=== PATIENT | female | born 1940 | race Caucasian/White ===

== ENCOUNTER 2022-11-01 12:08 | Emergency (ER) | payer MEDICARE, SELFPAY ==
[2022-11-01] VITALS (11 sets, daily range): BP systolic 145–180; BP diastolic 60–89; PULSE 73–85; RESP 16–23; TEMP 36.4; O2SAT 92; BMI 20.2
--- NOTE | 2022-11-01 12:35 | ECG_ITS ---
The 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
[2022-11-01 12:53] LABS: Basophils Percent Auto 0.6 % (0.2-2.0); Eosinophils Absolute Auto 0.3 10^3/uL (0.0-0.7); Eosinophils Percent Auto 5.1 % (0.9-7.0); Hematocrit 36.7 % (36.0-48.0); Hemoglobin 11.2 g/dL (12.0-16.0); Immature Granulocytes Abs Auto 0.02 10^3/uL (0.00-0.03); Immature Granulocytes Pct Auto 0.3 % (0.0-0.5); Lymphocytes Absolute Auto 2.3 10^3/uL (1.2-3.8); Lymphocytes Percent Auto 36.7 % (20.5-60.0); Mean Corpuscular HGB Conc 30.5 g/dL (29.9-35.2); Mean Corpuscular Hemoglobin 27.9 pg (26.7-34.0); Mean Corpuscular Volume 91.5 fL (81.0-99.0); Mean Platelet Volume 9.5 fL (9.5-13.5); Monocytes Absolute Auto 0.4 10^3/uL (0.3-0.8); Monocytes Percent Auto 7.1 % (1.7-12.0); Neutrophils Absolute Auto 3.1 10^3/uL (1.4-6.5); Neutrophils Percent Auto 50.2 % (43.0-75.0); Platelet Count 240 10^3/uL (150-450); Red Blood Count 4.01 10^6/uL (4.20-5.40); Red Cell Distribution Width 14.1 % (11.0-15.0); White Blood Count 6.2 10^3/uL (4.0-11.0)
--- NOTE | 2022-11-01 13:07 | US_ITS ---
[place] [id number] Patient Name: NAUN PERDOMO MRN: [id number] date: 1940 Sex: F Assigned Patient Location: ER Current Patient Location: ER Accession/Order Number: [id number] Exam Date: 11/01/2022 13:30 Report Date: 11/01/2022 14:33 At the request of: YUNIER VALENCIA Procedure: US venous doppler LE LT EXAMINATION: US venous doppler LE LT HISTORY: LLE swelling COMPARISON: No relevant comparison available. TECHNIQUE: Grayscale, color and Doppler ultrasound FINDINGS: Region: Left leg Thrombus: None Flow: Normal Augmentation: Normal Compressibility: Normal IMPRESSION: No deep or superficial vein thrombus identified in the left leg *Exam performed in accordance with [facility] practice guidelines- Peripheral venous ultrasound, August 12, 2009. Electronically authenticated by: MAE IZQUIERDO Date: 11/01/2022 14:33
--- NOTE | 2022-11-01 13:09 | ED.EXTPRO1 ---
Documented by User: Diane Mensah 11/01/22 16:43 HPI - Extremity Problem General Chief complaint: Extremity Problem, Nontraumatic Stated complaint: LOWER EXTREMITY SWELLING LEFT LEG Time Seen by Provider: 11/01/22 12:58 Source: patient Mode of arrival: walk-in Limitations: no limitations History of Present Illness HPI Narrative: 81 year old female presents to the ED for LLE swelling. Onset was 4-5 days ago. Denies fever, chills, injury, weakness, N/T. She has chronic SOB that is unchanged. MD Complaint: Reports extremity pain and extremity swelling; Denies cold extremity Location: Reports left Related Data Allergies Allergy/AdvReac Type Severity Reaction Status Date / Time Penicillins Allergy Unknown Verified 11/01/22 12:18 Review of Systems ROS Constitutional Denies: fever, chills or fatigue Cardiovascular Reports: swelling of feet/ankles and shortness of breath with exertion; Denies: chest pain Respiratory Reports: shortness of breath; Denies: cough Gastrointestinal Denies: abdominal pain, nausea, vomiting or diarrhea Musculoskeletal Reports: extremity swelling; Denies: back pain Neurological Denies: numbness in extremities or weakness in extremities Exam Constitutional Vital Signs - 24 hr 11/01/22 12:18 11/01/22 12:18 11/01/22 12:31 Temperature 97.5 F L Pulse Rate 74 77 Pulse Rate [Monitor] 82 Respiratory Rate 16 22 23 Blood Pressure 173/61 H 159/81 H Blood Pressure [Right Arm] 173/61 H Pulse Oximetry 92 L Oxygen Delivery Method Room Air 11/01/22 12:45 11/01/22 13:00 11/01/22 13:15 Temperature Pulse Rate 75 73 77 Pulse Rate [Monitor] Respiratory Rate 22 18 18 Blood Pressure 163/68 H 151/60 H 153/79 H Blood Pressure [Right Arm] Pulse Oximetry Oxygen Delivery Method 11/01/22 13:30 11/01/22 13:45 11/01/22 13:45 Temperature Pulse Rate 85 81 77 Pulse Rate [Monitor] Respiratory Rate Blood Pressure 162/64 H 180/89 H 180/89 H Blood Pressure [Right Arm] Pulse Oximetry Oxygen Delivery Method 11/01/22 14:00 11/01/22 14:15 11/01/22 14:30 Temperature Pulse Rate 78 75 77 Pulse Rate [Monitor] Respiratory Rate Blood Pressure 157/64 H 145/69 H 158/81 H Blood Pressure [Right Arm] Pulse Oximetry Oxygen Delivery Method Documenting provider has reviewed patient's vital signs: yes Common normals: no apparent distress and oriented x3 General appearance: cooperative and comfortable; not in distress and not ill appearing Orientation/consciousness: Yes awake HENMT Common normals: normocephalic Head and scalp: no cyanosis of lips/distal nose Neck & C-Spine Common normals: supple General: no JVD Chest Common normals: inspection of chest normal Chest: symmetrical chest wall rise Respiratory Common normals: normal respiratory effort Auscultation: clear to auscultation bilaterally Cardio Common normals: regular rate and regular rhythm Peripheral pulses: pulses 2+ throughout Extremity Left lower extremity: lower leg Left lower leg: inspection (1+ edema to lower leg, foot ankle.) and ankle joint (Mild swelling left ankle. No erythema, increased warmth, tendernes noted.) Left ankle: inspection, palpation (Pedal pulses palpable ) and neurovascular exam (Distal sensation intact. ) Neuro Common normals: oriented x3 Speech: speech normal Course Vital Signs Vital signs: Vital Signs Temperature 97.5 F L 11/01/22 12:18 Pulse Rate 74 11/01/22 12:18 Respiratory Rate 16 11/01/22 12:18 Blood Pressure 173/61 H 11/01/22 12:18 Pulse Oximetry 92 L 11/01/22 12:18 Oxygen Delivery Method Room Air 11/01/22 12:18 Temperature 97.5 F L 11/01/22 12:18 Pulse Rate 77 11/01/22 14:30 Respiratory Rate 18 11/01/22 13:15 Blood Pressure 158/81 H 11/01/22 14:30 Pulse Oximetry 92 L 11/01/22 12:18 Oxygen Delivery Method Room Air 11/01/22 12:18 MDM - Extremity (Nontraumatic) MDM Narrative Medical decision making narrative: CBC, CMP, BNP, and troponin were unremarkable. Venous Doppler of the LLE was negative for DVT. She was encouraged to follow up with her pcp for a recheck, further evaluation and treatment; return to the ED as needed or if condition worsens. Lab Data Attestation: I reviewed the patient's lab results. Labs: Lab Results 11/01/22 Range/Units 12:48 WBC 6.2 (4.0-11.0) 10^3/uL RBC 4.01 L (4.20-5.40) 10^6/uL Hgb 11.2 L (12.0-16.0) g/dL Hct 36.7 (36.0-48.0) % MCV 91.5 (81.0-99.0) fL MCH 27.9 (26.7-34.0) pg MCHC 30.5 (29.9-35.2) g/dL RDW 14.1 (11.0-15.0) % Plt Count 240 (150-450) 10^3/uL MPV 9.5 (9.5-13.5) fL Neut % (Auto) 50.2 (43.0-75.0) % Lymph % (Auto) 36.7 (20.5-60.0) % [place] % (Auto) 7.1 (1.7-12.0) % Eos % (Auto) 5.1 (0.9-7.0) % Baso % (Auto) 0.6 (0.2-2.0) % Neut # (Auto) 3.1 (1.4-6.5) 10^3/uL Lymph # (Auto) 2.3 (1.2-3.8) 10^3/uL [place] # (Auto) 0.4 (0.3-0.8) 10^3/uL Eos # (Auto) 0.3 (0.0-0.7) 10^3/uL Baso # (Auto) 0.0 (0.0-0.1) 10^3/uL Abs Immat Gran (auto) 0.02 (0.00-0.03) 10^3/uL Imm/Tot Granulo (auto) 0.3 (0.0-0.5) % Sodium 140 (136-145) mmol/L Potassium 3.5 (3.5-5.1) mmol/L Chloride 103 (98-107) mmol/L Carbon Dioxide 29.8 (21.0-32.0) mmol/L Anion Gap 10.7 BUN 7.0 (7.0-18.0) mg/dL Creatinine 0.66 (0.55-1.02) mg/dL Est GFR ( Amer) >60 (>=60) Est GFR (Non-Af Amer) >60 (>=60) BUN/Creatinine Ratio 10.6 Glucose 106 (74-106) mg/dL Calcium 9.0 (8.5-10.1) mg/dL Total Bilirubin 0.4 (0.2-1.0) mg/dL AST 18 (15-37) U/L ALT 14 (14-59) U/L Alkaline Phosphatase 75 (46-116) U/L Troponin I High Sens 6.8 (4.0-51.3) pg/mL NT-Pro-B Natriuret Pep 145.0 (<=1800.0) pg/mL Total Protein 6.7 (6.4-8.2) g/dL Albumin 3.3 L (3.4-5.0) g/dL Globulin 3.4 g/dL Albumin/Globulin Ratio 1.0 Imaging Data Venous US: Radiologist's impression: Procedure:? US venous doppler LE LT ? EXAMINATION: US venous doppler LE LT ? HISTORY: LLE swelling ? COMPARISON: No relevant comparison available. ? TECHNIQUE: Grayscale, color and Doppler ultrasound ? FINDINGS: ? Region: Left leg ? Thrombus: None Flow: Normal Augmentation: Normal Compressibility: Normal ? IMPRESSION: ? No deep or superficial vein thrombus identified in the left leg ? *Exam performed in accordance with [facility] practice guidelines- Peripheral venous ? ultrasound, August 12, 2009. ? ? Electronically authenticated by: ISACC IZQUIERDO ? Date: 11/01/2022? 14:33 ECG Data Attestation ECG: ?I have reviewed the pertinent ECG results. (EKG was reviewed by the attending physician. It showed sinus rhythm at a rate of 73. No acute ST segment changes. SD interval 74 ms, QTc 416 ms) Prior ECG tracings: not available for review Interpretation: ?? Test Date:? ? 2022-11-01 Pat Name: ? ? NAUN PERDOMO ? Department: ? Patient ID: ? [id number] ? Room: ? - Gender: ? ? ? Female ? 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 :? 1940 ? Requested By: [id number] Order Number: [id number]? Reading MD: ? Measurements Intervals? [place]? Rate: ? 73 ? P:? 62 SD: ? 166? QRS:? 37 QRSD: ? 74 ? T:? 75 QT: ? 390? QTc:? 416? Interpretive Statements 1100 Sinus rhythm 9110 ? normal ECG? No previous ECG available for comparison Discharge Plan Discharge Chief Complaint: Extremity Problem, Nontraumatic Clinical Impression: Left leg swelling Patient Disposition: Home, Self-Care Time of Disposition Decision: 14:39 Condition: Good Mode of Transportation: Private Vehicle Instructions: Leg Edema (ED) Stand Alone Forms: Portal Instructions Referrals: MELVA LEMOS [Primary Care Provider] - 1 week Discharge Date/Time: 11/01/22 14:56 Documented by User: Jose Cintron MD 11/01/22 19:33 HPI - Extremity Problem General Chief complaint: Extremity Problem, Nontraumatic Stated complaint: LOWER EXTREMITY SWELLING LEFT LEG Time Seen by Provider: 11/01/22 12:58 Related Data Allergies Allergy/AdvReac Type Severity Reaction Status Date / Time Penicillins Allergy Unknown Verified 11/01/22 12:18 Exam Constitutional Vital Signs - 24 hr 11/01/22 12:18 11/01/22 12:18 11/01/22 12:31 Temperature 97.5 F L Pulse Rate 74 77 Pulse Rate [Monitor] 82 Respiratory Rate 16 23 Blood Pressure 173/61 H 159/81 H Blood Pressure [Right Arm] 173/61 H Pulse Oximetry 92 L Oxygen Delivery Method Room Air 11/01/22 12:45 11/01/22 13:00 11/01/22 13:15 Temperature Pulse Rate 75 73 77 Pulse Rate [Monitor] Respiratory Rate 22 18 18 Blood Pressure 163/68 H 151/60 H 153/79 H Blood Pressure [Right Arm] Pulse Oximetry Oxygen Delivery Method 11/01/22 13:30 11/01/22 13:45 11/01/22 13:45 Temperature Pulse Rate 85 81 77 Pulse Rate [Monitor] Respiratory Rate Blood Pressure 162/64 H 180/89 H 180/89 H Blood Pressure [Right Arm] Pulse Oximetry Oxygen Delivery Method 11/01/22 14:00 11/01/22 14:15 11/01/22 14:30 Temperature Pulse Rate 78 75 77 Pulse Rate [Monitor] Respiratory Rate Blood Pressure 157/64 H 145/69 H 158/81 H Blood Pressure [Right Arm] Pulse Oximetry Oxygen Delivery Method Course Vital Signs Vital signs: Vital Signs Temperature 97.5 F L 11/01/22 12:18 Pulse Rate 74 11/01/22 12:18 Respiratory Rate 16 11/01/22 12:18 Blood Pressure 173/61 H 11/01/22 12:18 Pulse Oximetry 92 L 11/01/22 12:18 Oxygen Delivery Method Room Air 11/01/22 12:18 Temperature 97.5 F L 11/01/22 12:18 Pulse Rate 77 11/01/22 14:30 Respiratory Rate 18 11/01/22 13:15 Blood Pressure 158/81 H 11/01/22 14:30 Pulse Oximetry 92 L 11/01/22 12:18 Oxygen Delivery Method Room Air 11/01/22 12:18 MDM - Extremity (Nontraumatic) Lab Data Labs: Lab Results 11/01/22 Range/Units 12:48 WBC 6.2 (4.0-11.0) 10^3/uL RBC 4.01 L (4.20-5.40) 10^6/uL Hgb 11.2 L (12.0-16.0) g/dL Hct 36.7 (36.0-48.0) % MCV 91.5 (81.0-99.0) fL MCH 27.9 (26.7-34.0) pg MCHC 30.5 (29.9-35.2) g/dL RDW 14.1 (11.0-15.0) % Plt Count 240 (150-450) 10^3/uL MPV 9.5 (9.5-13.5) fL Neut % (Auto) 50.2 (43.0-75.0) % Lymph % (Auto) 36.7 (20.5-60.0) % [place] % (Auto) 7.1 (1.7-12.0) % Eos % (Auto) 5.1 (0.9-7.0) % Baso % (Auto) 0.6 (0.2-2.0) % Neut # (Auto) 3.1 (1.4-6.5) 10^3/uL Lymph # (Auto) 2.3 (1.2-3.8) 10^3/uL [place] # (Auto) 0.4 (0.3-0.8) 10^3/uL Eos # (Auto) 0.3 (0.0-0.7) 10^3/uL Baso # (Auto) 0.0 (0.0-0.1) 10^3/uL Abs Immat Gran (auto) 0.02 (0.00-0.03) 10^3/uL Imm/Tot Granulo (auto) 0.3 (0.0-0.5) % Sodium 140 (136-145) mmol/L Potassium 3.5 (3.5-5.1) mmol/L Chloride 103 (98-107) mmol/L Carbon Dioxide 29.8 (21.0-32.0) mmol/L Anion Gap 10.7 BUN 7.0 (7.0-18.0) mg/dL Creatinine 0.66 (0.55-1.02) mg/dL Est GFR ( Amer) >60 (>=60) Est GFR (Non-Af Amer) >60 (>=60) BUN/Creatinine Ratio 10.6 Glucose 106 (74-106) mg/dL Calcium 9.0 (8.5-10.1) mg/dL Total Bilirubin 0.4 (0.2-1.0) mg/dL AST 18 (15-37) U/L ALT 14 (14-59) U/L Alkaline Phosphatase 75 (46-116) U/L Troponin I High Sens 6.8 (4.0-51.3) pg/mL NT-Pro-B Natriuret Pep 145.0 (<=1800.0) pg/mL Total Protein 6.7 (6.4-8.2) g/dL Albumin 3.3 L (3.4-5.0) g/dL Globulin 3.4 g/dL Albumin/Globulin Ratio 1.0 Critical Care Time Critical Care Time Attestation: I, Dr Cintron, have reviewed the above progress note and course of action in the ER; agree with the above. I have personally seen and evaluated this patient, gone over history and physical, and discussed disposition and treatment plan with the patient. Discharge Plan Discharge Chief Complaint: Extremity Problem, Nontraumatic Clinical Impression: Left leg swelling Patient Disposition: Home, Self-Care Time of Disposition Decision: 14:39 Condition: Good Mode of Transportation: Private Vehicle Instructions: Leg Edema (ED) Stand Alone Forms: Portal Instructions Referrals: MELVA LEMOS [Primary Care Provider] - 1 week Discharge Date/Time: 11/01/22 14:56
[2022-11-01 13:24] LABS: Alanine Aminotransferase 14 U/L (14-59); Albumin Level 3.3 g/dL (3.4-5.0); Alkaline Phosphatase 75 U/L (46-116); Anion Gap 10.7; Aspartate Amino Transferase 18 U/L (15-37); BUN Creatinine Ratio 10.6; Bilirubin Total 0.4 mg/dL (0.2-1.0); Carbon Dioxide 29.8 mmol/L (21.0-32.0); Chloride 103 mmol/L (98-107); Estimated GFR (African America >60 (>=60); Estimated GFR (Non-African Ame >60 (>=60); Globulin 3.4 g/dL; Glucose 106 mg/dL (74-106); Potassium 3.5 mmol/L (3.5-5.1); Sodium 140 mmol/L (136-145); Total Protein 6.7 g/dL (6.4-8.2)
[2022-11-01 13:33] LABS: Troponin I High Sensitivity 6.8 pg/mL (4.0-51.3)
== END 2022-11-01 14:56 | disposition home or self-care (01) ==
PROVIDERS: Emergency Provider Emergency Medicine; PCP Family Medicine
DX: M79.89 Other specified soft tissue disorders (principal); R06.02 Shortness of breath
CPT/HCPCS: 36415; 80053; 83880; 84484; 85025; 93005; 93971; 99285

== ENCOUNTER 2023-07-05 19:36 | Emergency (ER) | payer MEDICARE, SELFPAY ==
[2023-07-05] VITALS (26 sets, daily range): BP systolic 145–219; BP diastolic 53–91; PULSE 85–119; RESP 10–35; TEMP 36.5; O2SAT 93–99; BMI 20.2
--- NOTE | 2023-07-05 19:51 | ED.SOB1 ---
HPI - SOB/Dyspnea General Chief Complaint: Shortness of Breath/Dyspnea Stated Complaint: Shortness of Breath Time Seen by Provider: 07/05/23 19:39 Source: patient Mode of arrival: Wheelchair History of Present Illness HPI Narrative: history of 02 dependent COPD. History of HTN. more short of breath the past couple of days. neg chest pain or nausea MD elicited complaint: shortness of breath Pertinent past history: COPD Related Data Home Medications Medication Instructions Recorded Confirmed fluticasone 250 mcg-salmeterol 50 1 inh inhalation BID 07/05/23 07/05/23 mcg/dose blistr powdr for inhalation (Advair Diskus) hydrochlorothiazide 12.5 mg tablet 12.5 mg PO DAILY 07/05/23 07/05/23 Allergies Allergy/AdvReac Type Severity Reaction Status Date / Time Penicillins Allergy Unknown Verified 11/01/22 12:18 Review of Systems ROS Status of ROS 10 or more systems reviewed and unremarkable except as noted in history and below [facility] Medical History (Updated 07/05/23 @ 22:26 by Modesto Martinez MD) HTN (hypertension) ?I10 - Essential (primary) hypertension (ICD-10) On home O2 ?Z99.81 - Dependence on supplemental oxygen (ICD-10) COPD (chronic obstructive pulmonary disease) ?J44.9 - Chronic obstructive pulmonary disease, unspecified (ICD-10) Exam Constitutional Vital Signs, click to edit/add: Last Vital Signs Temp 97.7 F 07/05/23 19:38 Pulse 118 H 07/05/23 22:10 Resp 29 H 07/05/23 22:10 BP 159/65 H 07/05/23 22:00 Pulse Ox 95 07/05/23 22:10 O2 Del Method Nasal Cannula 07/05/23 21:10 O2 Flow Rate 2 07/05/23 21:10 Common normals: no apparent distress, oriented x3 and alert General appearance: in distress mild HENMT Common normals: normocephalic and head/scalp atraumatic Eye Common normals: EOMs intact bilaterally and conjunctivae normal Respiratory Other: diminished breath sounds Cardio Other: distant S1S2 RRR GI Other: mild lower quad tenderness Extremity Common normals: normal to inspection and full ROM Neuro Common normals: oriented x3, CN's II-XII intact bilaterally, moves all extremities, no focal motor deficits and no sensory deficits noted Psych Appearance: grossly normal Course Vital Signs Vital signs: Vital Signs Temperature 97.7 F 07/05/23 19:38 Pulse Rate 98 H 07/05/23 19:38 Respiratory Rate 26 H 07/05/23 19:38 Blood Pressure 219/91 H 07/05/23 19:38 Pulse Oximetry 93 L 07/05/23 19:38 Oxygen Delivery Method Nasal Cannula 07/05/23 19:38 Oxygen Delivery Flow Rate 3 07/05/23 19:38 Temperature 97.7 F 07/05/23 19:38 Pulse Rate 118 H 07/05/23 22:10 Respiratory Rate 29 H 07/05/23 22:10 Blood Pressure 159/65 H 07/05/23 22:00 Pulse Oximetry 95 07/05/23 22:10 Oxygen Delivery Method Nasal Cannula 07/05/23 21:10 Oxygen Delivery Flow Rate 2 07/05/23 21:10 MDM - SOB/Dyspnea MDM Narrative Medical decision making narrative: patient has 02 dependent COPD. Presents feeling more short of breath than her normal. No fever . Has felt this way for a couple of days. no associated chest pain or nausea. cxray clear. labs unremarkable. Patient treated with solumedrol and duoneb x 2. Feeling a little better. Did not want to stay overnight in the hospital. I felt she could benefit from additional duoneb treatments before going home and this is why I recommended obs admit. She and her state they can return if her breathing worsens Lab Data Labs: Lab Results 07/05/23 Range/Units 19:50 WBC 8.4 (4.0-11.0) 10^3/uL RBC 4.98 (4.20-5.40) 10^6/uL Hgb 14.7 (12.0-16.0) g/dL Hct 46.7 (36.0-48.0) % MCV 93.8 (81.0-99.0) fL MCH 29.5 (26.7-34.0) pg MCHC 31.5 (29.9-35.2) g/dL RDW 12.4 (11.0-15.0) % Plt Count 225 (150-450) 10^3/uL MPV 10.0 (9.5-13.5) fL Neut % (Auto) 62.4 (43.0-75.0) % Lymph % (Auto) 26.3 (20.5-60.0) % [place] % (Auto) 7.8 (1.7-12.0) % Eos % (Auto) 2.7 (0.9-7.0) % Baso % (Auto) 0.6 (0.2-2.0) % Neut # (Auto) 5.2 (1.4-6.5) 10^3/uL Lymph # (Auto) 2.2 (1.2-3.8) 10^3/uL [place] # (Auto) 0.7 (0.3-0.8) 10^3/uL Eos # (Auto) 0.2 (0.0-0.7) 10^3/uL Baso # (Auto) 0.1 (0.0-0.1) 10^3/uL Abs Immat Gran (auto) 0.02 (0.00-0.03) 10^3/uL Imm/Tot Granulo (auto) 0.2 (0.0-0.5) % Sodium 142 (136-145) mmol/L Potassium 4.0 (3.5-5.1) mmol/L Chloride 101 (98-107) mmol/L Carbon Dioxide 30.0 (21.0-32.0) mmol/L Anion Gap 15.0 BUN 17.0 (7.0-18.0) mg/dL Creatinine 0.72 (0.55-1.02) mg/dL Est GFR ( Amer) >60 (>=60) Est GFR (Non-Af Amer) >60 (>=60) BUN/Creatinine Ratio 23.6 Glucose 104 (74-106) mg/dL Calcium 9.4 (8.5-10.1) mg/dL Troponin I High Sens 12.5 (4.0-51.3) pg/mL Discharge Plan Discharge Chief Complaint: Shortness of Breath/Dyspnea Clinical Impression: Chronic obstructive pulmonary disease with (acute) exacerbation Patient Disposition: Home, Self-Care Prescriptions / Home Meds: No Action fluticasone propion-salmeterol [Advair Diskus] 250-50 mcg/dose blister with device 1 inh INHALATION BID hydrochlorothiazide 12.5 mg tablet 12.5 mg PO DAILY Instructions: COPD (Chronic Obstructive Pulmonary Disease) (ED) Additional Instructions: follow up with your doctor next week Stand Alone Forms: Portal Instructions Referrals: MELVA LEMOS [Primary Care Provider] - 1 week
--- NOTE | 2023-07-05 19:53 | ECG_ITS ---
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
--- NOTE | 2023-07-05 19:53 | XR_ITS ---
The [address] [address] Patient Name: NAUN PERDOMO MRN: [id number] date: 1940 Sex: F Assigned Patient Location: ER Current Patient Location: ED.MAIN Accession/Order Number: [id number] Exam Date: 07/05/2023 20:20 Report Date: 07/05/2023 20:59 At the request of: JORGE ROPER Procedure: XR chest 1V EXAM: XR chest 1V REASON FOR EXAM: Female, 82 years, short of breath. TECHNIQUE: A single AP view of the chest is performed. COMPARISON: 09/07/2022. FINDINGS: Cardiac monitoring leads overlie the chest. The lungs are hyperinflated with emphysematous changes. No focal consolidation. Normal pleura. Normal size heart. Normal mediastinum and aida. Normal visualized pulmonary arteries. There is calcification of the aortic knob. Normal visualized thoracic spine. Normal visualized ribs, clavicles, and shoulders. There is no demonstrated abnormality of the visualized soft tissue structures of the upper abdomen. XR/XR chest 1V IMPRESSION: COPD. No focal consolidation. Electronically authenticated by: RENETTA RANDOLPH Date: 07/05/2023 20:59
[2023-07-05 20:01] LABS: Basophils Absolute Auto 0.1 10^3/uL (0.0-0.1); Basophils Percent Auto 0.6 % (0.2-2.0); Eosinophils Absolute Auto 0.2 10^3/uL (0.0-0.7); Eosinophils Percent Auto 2.7 % (0.9-7.0); Hematocrit 46.7 % (36.0-48.0); Hemoglobin 14.7 g/dL (12.0-16.0); Immature Granulocytes Abs Auto 0.02 10^3/uL (0.00-0.03); Immature Granulocytes Pct Auto 0.2 % (0.0-0.5); Lymphocytes Absolute Auto 2.2 10^3/uL (1.2-3.8); Lymphocytes Percent Auto 26.3 % (20.5-60.0); Mean Corpuscular HGB Conc 31.5 g/dL (29.9-35.2); Mean Corpuscular Hemoglobin 29.5 pg (26.7-34.0); Mean Corpuscular Volume 93.8 fL (81.0-99.0); Monocytes Absolute Auto 0.7 10^3/uL (0.3-0.8); Monocytes Percent Auto 7.8 % (1.7-12.0); Neutrophils Absolute Auto 5.2 10^3/uL (1.4-6.5); Neutrophils Percent Auto 62.4 % (43.0-75.0); Platelet Count 225 10^3/uL (150-450); Red Blood Count 4.98 10^6/uL (4.20-5.40); Red Cell Distribution Width 12.4 % (11.0-15.0); White Blood Count 8.4 10^3/uL (4.0-11.0)
--- NOTE | 2023-07-05 20:06 | RESP.RT ---
decreased to 2L nasal cannula (patient wears at home)
[2023-07-05] MEDS: IPRATROPIUM/ALBUTEROL SULFATE 3 ML AMPUL.NEB IH ×2 (20:09→21:07)
[2023-07-05] MEDS: METHYLPREDNISOLONE SOD SUCC PF 125 MG/2 ML VIAL IVP (20:13)
[2023-07-05 20:17] LABS: BUN Creatinine Ratio 23.6; Calcium 9.4 mg/dL (8.5-10.1); Chloride 101 mmol/L (98-107); Estimated GFR (African America >60 (>=60); Estimated GFR (Non-African Ame >60 (>=60); Glucose 104 mg/dL (74-106); Sodium 142 mmol/L (136-145); Troponin I High Sensitivity 12.5 pg/mL (4.0-51.3)
[2023-07-05 21:37] LABS: Adenovirus NOT DETECTED (NOT DETECTE); Bordetella parapertussis NOT DETECTED (NOT DETECTE); Coronavirus 229E NOT DETECTED (NOT DETECTE); Coronavirus HKU1 NOT DETECTED (NOT DETECTE); Coronavirus NL63 NOT DETECTED (NOT DETECTE); Coronavirus OC43 NOT DETECTED (NOT DETECTE); Human Metapneumovirus NOT DETECTED (NOT DETECTE); Human Rhinovirus/Enterovirus NOT DETECTED (NOT DETECTE); Influenza A NOT DETECTED (NOT DETECTE); Influenza B NOT DETECTED (NOT DETECTE); Mycoplasma pneumoniae NOT DETECTED (NOT DETECTE); Parainfluenza Virus 1 NOT DETECTED (NOT DETECTE); Parainfluenza Virus 2 NOT DETECTED (NOT DETECTE); Parainfluenza Virus 3 NOT DETECTED (NOT DETECTE); Parainfluenza Virus 4 NOT DETECTED (NOT DETECTE); Respiratory Syncytial Virus NOT DETECTED (NOT DETECTE); SARS-CoV-2 NOT DETECTED (NOT DETECTE)
== END 2023-07-05 23:03 | disposition home or self-care (01) ==
PROVIDERS: Emergency Provider Internal Medicine; PCP Family Medicine
DX: J44.1 Chronic obstructive pulmonary disease with (acute) exacerbation (principal); R06.02 Shortness of breath; I10 Essential (primary) hypertension; Z99.81 Dependence on supplemental oxygen
CPT/HCPCS: 0202U; 36415; 71045; 80048; 84484; 85025; 93005; 94640; 96374; 99285; J0360; J2930